=== PATIENT | male | born 1970 | race Caucasian/White ===

== ENCOUNTER 2024-12-12 12:38 | Emergency (ER) | payer OTHER, SELFPAY ==
[2024-12-12] VITALS (11 sets, daily range): BP systolic 133–163; BP diastolic 72–108; PULSE 70–89; TEMP 36.8; O2SAT 97–99; BMI 20.9
--- NOTE | 2024-12-12 12:47 | ECG_ITS ---
[facility] Test Date: 2024-12-12 Pat Name: Marcus Stein Department: Room: - Gender: Male Filling Station Attendant: : 1970 Requested By: [id number] Order Number: [id number] Reading MD: ROSANNE DE M.D. Measurements Intervals [place] Rate: 77 P: 70 MS: 142 QRS: 70 QRSD: 82 T: 52 QT: 370 QTc: 402 Interpretive Statements 1100 Sinus rhythm 4068 Nonspecific [place] abnormality 9130 borderline ECG No previous ECG available for comparison Electronically Signed On 12-12-2024 20:26:56 EDT by ROSANNE DE M.D.
--- NOTE | 2024-12-12 12:48 | ED.GENADUL1 ---
HPI HPI - General Adult General Chief complaint: Chest Pain Stated complaint: CHEST PAIN Time Seen by Provider: 12/12/24 12:40 Source: patient and EMR Mode of arrival: ambulance Limitations: no limitations History of Present Illness HPI narrative: 54-year-old male presents to the emergency department for elevated blood pressure. He states he has been like that for about 6 days. He is on blood pressure medicine and has not missed any doses. He has been at the drug treatment facility for 10 days and is being treated for opioid abuse. He has not used any in 2 months. No fever or cough. He states his right upper chest hurts sometimes. Related Data Allergies Allergy/AdvReac Type Severity Reaction Status Date / Time No Known Drug Allergies Allergy Verified 12/12/24 14:07 Opioid HPI Opioid Management Most Recent Opioid Data: No Data to Display Review of Systems ROS Narrative A ten point review of systems is negative except as noted above. PFSH PFSH Social History Little interest or pleasure in doing things: not at all Feeling down, depressed, or hopeless: not at all Exam Narrative Exam Narrative: Nurses note and vital signs reviewed and patient is not hypoxic. General: The patient appears well and in no apparent distress. Patient is resting comfortably on cart. Skin: Warm, dry, no pallor noted. There is no rash noted. Head: Normocephalic, atraumatic Eye: Normal conjunctiva, no drainage Ears, Nose, Mouth, and Throat: oral mucosa is moist. Nares patent. Cardiovascular: Regular Rate and Rhythm Respiratory: Patient is in no distress, no accessory muscle use, lungs are clear to auscultation, no wheezing, rales or rhonchi Back: non-tender GI: Soft and nontender Musculoskeletal: The patient has no evidence of calf tenderness, no pitting edema, symmetrical pulses noted bilaterally Neurological: A&O, normal speech Psychiatric: Cooperative Constitutional Vital Signs, click to edit/add: Last Vital Signs Temp 98.2 F 12/12/24 12:38 Pulse 80 12/12/24 14:30 Resp 17 12/12/24 14:30 BP 133/73 12/12/24 14:30 Pulse Ox 99 12/12/24 12:41 O2 Del Method Room Air 12/12/24 12:38 Course Vital Signs Vital signs: Vital Signs Temperature 98.2 F 12/12/24 12:38 Pulse Rate 70 12/12/24 12:38 Respiratory Rate 18 12/12/24 12:38 Blood Pressure 158/98 H 12/12/24 12:38 Pulse Oximetry 98 12/12/24 12:38 Oxygen Delivery Method Room Air 12/12/24 12:38 Temperature 98.2 F 12/12/24 12:38 Pulse Rate 80 12/12/24 14:30 Respiratory Rate 17 12/12/24 14:30 Blood Pressure 133/73 12/12/24 14:30 Pulse Oximetry 99 12/12/24 12:41 Oxygen Delivery Method Room Air 12/12/24 12:38 Medical Decision Making MDM Narrative Medical decision making narrative: The patient presented with elevated blood pressure. He was given 10 mg of IV labetalol with excellent improvement. His workup is negative including troponin and is able to be released. Treatment diagnosis and follow-up were discussed with the patient. Differential Diagnosis Differential Diagnosis: Uncontrolled hypertension, acute kidney injury, myocardial infarction Lab Data Lab results reviewed: Yes I reviewed the patient's lab results Labs: Lab Results 12/12/24 12/12/24 Range/Units 12:56 13:49 WBC 7.4 (4.0-11.0) 10^3/uL RBC 5.49 (4.70-6.10) 10^6/uL Hgb 15.4 (14.0-18.0) g/dL Hct 45.6 (42.0-54.0) % MCV 83.1 (80.0-94.0) fL MCH 28.1 (25.9-34.0) pg MCHC 33.8 (29.9-35.2) g/dL RDW 12.5 (11.0-15.0) % Plt Count 221 (150-450) 10^3/uL MPV 10.0 (9.5-13.5) fL Neut % (Auto) 63.4 (43.0-75.0) % Lymph % (Auto) 24.5 (20.5-60.0) % [place] % (Auto) 9.7 (1.7-12.0) % Eos % (Auto) 1.3 (0.9-7.0) % Baso % (Auto) 0.8 (0.2-2.0) % Neut # (Auto) 4.7 (1.4-6.5) 10^3/uL Lymph # (Auto) 1.8 (1.2-3.8) 10^3/uL [place] # (Auto) 0.7 (0.3-0.8) 10^3/uL Eos # (Auto) 0.1 (0.0-0.7) 10^3/uL Baso # (Auto) 0.1 (0.0-0.1) 10^3/uL Abs Immat Gran (auto) 0.02 (0.00-0.03) 10^3/uL Imm/Tot Granulo (auto) 0.3 (0.0-0.5) % Sodium 137 (136-145) mmol/L Potassium 4.8 (3.5-5.1) mmol/L Chloride 103 (98-107) mmol/L Carbon Dioxide 26.3 (21.0-32.0) mmol/L Anion Gap 12.5 BUN 23.0 H (7.0-18.0) mg/dL Creatinine 0.98 (0.70-1.30) mg/dL Est GFR ( Amer) >60 (>=60 mL/min/1.73m^2) Est GFR (Non-Af Amer) >60 (>=60 mL/min/1.73m^2) BUN/Creatinine Ratio 23.5 Glucose 99 (74-106) mg/dL Calcium 8.9 (8.5-10.1) mg/dL Troponin I High Sens 4.2 (4.0-76.1) pg/mL Imaging Data Chest x-ray: Radiologist's impression: No acute process ECG Data Attestation: I personally reviewed and interpreted this ECG as follows: (EKG on my interpretation shows normal sinus rhythm with a rate of 77 and no acute change.) Discharge Plan Discharge Chief Complaint: Chest Pain Clinical Impression: Hypertension Patient Disposition: Home, Self-Care Time of Disposition Decision: 14:47 Condition: Good Mode of Transportation: Private Vehicle Print Language: Chinese Instructions: Hypertension (ED) Referrals: Physician,Non-Staff, MD [Primary Care Provider] - 1 week
[2024-12-12 13:25] LABS: Anion Gap 12.5; BUN Creatinine Ratio 23.5; Calcium 8.9 mg/dL (8.5-10.1); Carbon Dioxide 26.3 mmol/L (21.0-32.0); Chloride 103 mmol/L (98-107); Estimated GFR (African America >60 (>=60 mL/min/1.73m^2); Estimated GFR (Non-African Ame >60 (>=60 mL/min/1.73m^2); Glucose 99 mg/dL (74-106); Potassium 4.8 mmol/L (3.5-5.1); Sodium 137 mmol/L (136-145); Troponin I High Sensitivity 4.2 pg/mL (4.0-76.1)
[2024-12-12 13:54] LABS: Basophils Absolute Auto 0.1 10^3/uL (0.0-0.1); Basophils Percent Auto 0.8 % (0.2-2.0); Eosinophils Absolute Auto 0.1 10^3/uL (0.0-0.7); Eosinophils Percent Auto 1.3 % (0.9-7.0); Hematocrit 45.6 % (42.0-54.0); Hemoglobin 15.4 g/dL (14.0-18.0); Immature Granulocytes Abs Auto 0.02 10^3/uL (0.00-0.03); Immature Granulocytes Pct Auto 0.3 % (0.0-0.5); Lymphocytes Absolute Auto 1.8 10^3/uL (1.2-3.8); Lymphocytes Percent Auto 24.5 % (20.5-60.0); Mean Corpuscular HGB Conc 33.8 g/dL (29.9-35.2); Mean Corpuscular Hemoglobin 28.1 pg (25.9-34.0); Mean Corpuscular Volume 83.1 fL (80.0-94.0); Monocytes Absolute Auto 0.7 10^3/uL (0.3-0.8); Monocytes Percent Auto 9.7 % (1.7-12.0); Neutrophils Absolute Auto 4.7 10^3/uL (1.4-6.5); Neutrophils Percent Auto 63.4 % (43.0-75.0); Platelet Count 221 10^3/uL (150-450); Red Blood Count 5.49 10^6/uL (4.70-6.10); Red Cell Distribution Width 12.5 % (11.0-15.0); White Blood Count 7.4 10^3/uL (4.0-11.0)
[2024-12-12] MEDS: LABETALOL HCL 20 MG/4 ML SYRINGE 10 MG IVP (14:09)
== END 2024-12-12 14:55 | disposition home or self-care (01) ==
PROVIDERS: Emergency Provider Emergency Medicine
DX: I10 Essential (primary) hypertension (principal); F11.10 Opioid abuse, uncomplicated; R07.9 Chest pain, unspecified
CPT/HCPCS: 36415; 71045; 80048; 84484; 85025; 93005; 96374; 99285; J1920